=== PATIENT | female | born 1995 | race Caucasian/White ===

== ENCOUNTER 2021-10-23 00:34 | Emergency (ER) | payer BC ==
[~2021-10-23] VITALS: Ht 154.9 cm; Wt 61.2 kg
[2021-10-23 00:38] VITALS: BP 127/89
[2021-10-23 01:20] LABS: Urine Bacteria FEW /hpf (None Seen); Urine Blood 2+ /uL (Negative); Urine Specific Gravity 1.001 (1.001-1.035); Urine WBC 40 /hpf (0 - 5)
== END 2021-10-23 03:24 | disposition left against medical advice (07) ==
LOC: ER 00:34
DX: R10.9 Unspecified abdominal pain (principal); Z53.21 Procedure and treatment not carried out due to patient leaving prior to being seen by health care provider
CPT/HCPCS: 81001